=== PATIENT | female | born 1995 | race African-American/Black ===

== ENCOUNTER 2016-06-23 00:14 | Emergency (ER) | payer OTHER ==
[~2016-06-23] VITALS: Ht 160 cm; Wt 68.0 kg
[~2016-06-23 00:14] MED LIST: AMOXIL500 MG PO; IBUPROFEN800 M1 PO; PREDNISOLO15 MG/5 M4 PO; TYLENOL #31 TAB PO
[2016-06-23 00:32] VITALS: BP 117/78
--- NOTE | 2016-06-23 01:57 | ED INFLUENZA/URI COMPLAINT ---
History of Present Illness General Chief Complaint: Sore Throat, Dental Pain Stated Complaint: NECK LUMP Source: patient Exam Limitations: no limitations Vital Signs & Intake/Output Vital Signs & Intake/Output Vital Signs Date Time Temp Pulse Resp B/P Pulse O2 O2 Flow FiO2 Ox Delivery Rate 06/23 0307 97.3 06/23 0032 97.3 99 18 117/78 98 Room Air Allergies Coded Allergies: NO KNOWN ALLERGIES (03/22/16) Reconcile Medications Ibuprofen 600 MG TABLET 1 TAB PO TID PRN PAIN, BODY ACHES with food Triage Note: SWOLLEN GLAND LT SIDE OF NECK HURTS JULIA SWALLOW Triage Nurses Notes Reviewed? yes Onset: Gradual Duration: day(s): Severity: mild Modifying Factors: Improves With: rest. Worsens With: other (worse with swallowing). Associated Symptoms: "I feel lump in my neck." : No Patient currently breastfeeds: No HPI: 20-year-old woman in prior good health presents with 1 day history of sore throat and mild pain in her left submental region where she has felt a small mobile lump. She has no ear pain sinus pressure or dyspnea wheezing fever chest or abdominal pain. Past History Travel History Traveled to [place] past 21 day No Medical History Any Pertinent Medical History? 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 No Review of Systems Review of Systems Constitutional: Reports: no symptoms. EENTM: Reports: no symptoms. Respiratory: Reports: no symptoms. Cardiovascular: Reports: no symptoms. GI: Reports: no symptoms. Genitourinary: Reports: no symptoms. Musculoskeletal: Reports: no symptoms. Skin: Reports: no symptoms. Neurological/Psychological: Reports: no symptoms. Hematologic/Endocrine: Reports: no symptoms. Immunologic/Allergic: Reports: no symptoms. All Other Systems: Reviewed and Negative Physical Exam Physical Exam General Appearance: well developed/nourished, no apparent distress Head: atraumatic, normal appearance Eyes: Bilateral: normal appearance. Ears, Nose, Throat: pharyngeal erythema, TMs are normal Neck: 1 cm mobile smooth lymph node in the submental region on the left. No sign of lymphadenitis. Respiratory: normal breath sounds, chest non-tender, no respiratory distress, quiet respiration, lungs clear Cardiovascular: regular rate/rhythm Gastrointestinal: normal bowel sounds, soft, non-tender, no organomegaly Back: normal inspection Extremities: normal inspection Neurologic/Psych: no motor/sensory deficits, awake, alert, oriented x 3 Skin: intact, normal color, warm/dry Core Measures Severe Sepsis Present: No Septic Shock Present: No Progress Differential Diagnosis: viral syndrome versus strep throat versus other Plan of Care: Orders Procedure Date/time Status THROAT CULTURE W/QUICK STREP 06/23 0035 Active Initial ED EKG: none Departure Departure Disposition: HOME OR SELF CARE Condition: Stable Clinical Impression Primary Impression: Pharyngitis Referrals: PATIENT HAS NO PRIMARY CARE DR (PCP/Family) Departure Forms: Customer Survey General Discharge Information Prescriptions: Current Visit Scripts Ibuprofen 1 TAB PO TID PRN PAIN, BODY ACHES #30 TAB with food Comments Rapid strep negative. Patient hasn't otherwise benign exam. We'll give symptomatic care with one dose of Decadron and ibuprofen
[2016-06-23] MEDS ORDERED: IBUPROFEN600 M1 PO (03:01)
== END 2016-06-23 03:23 ==
LOC: ERH 00:14
DX: J02.9 Acute pharyngitis, unspecified (principal)
CPT/HCPCS: J1100

== ENCOUNTER 2016-11-11 05:26 | Emergency (ER) | payer OTHER ==
[~2016-11-11] VITALS: Ht 160 cm; Wt 72.6 kg
[~2016-11-11 05:26] MED LIST changes: +IBUPROFEN600 M1 PO
[2016-11-11 05:31] VITALS: BP 107/69
--- NOTE | 2016-11-11 06:00 | ED GENERAL ADULT ---
History of Present Illness General Chief Complaint: General Adult Stated Complaint: BIBA, LEG AND ABD PAIN Source: patient Exam Limitations: no limitations Vital Signs & Intake/Output Vital Signs & Intake/Output Vital Signs Date Time Temp Pulse Resp B/P B/P Pulse O2 O2 Flow FiO2 Mean Ox Delivery Rate 11/11 0532 99 Room Air 11/11 0531 94.7 105 18 107/69 100 Room Air Allergies Coded Allergies: NO KNOWN ALLERGIES (03/22/16) Triage Note: PT BIBA FROM HOME C/O LEG CRAMPS. PER PT "I TOOK 2 WATER PILLS AROUND 1999 LAST NIGHT BECAUSE SOMEONE TOLD ME IT WOULD MAKE ME LOSE WEIGHT, THEN I WOKE UP ABOUT 30 MINS AGO WITH LEG CRAMPS" PT DENIES ANY OTHER COMPLAINTS AT THIS TIME. VSS, PT A&0X3. AWAITING PROVIDER EVAL Triage Nurses Notes Reviewed? yes Onset: Abrupt Duration: hour(s):, intermittent, resolved prior to arrival Severity: severe : No Patient currently breastfeeds: No HPI: Patient presents for evaluation of abdominal and leg cramps after taking 2 "water pills" to lose weight at about 8:00 this evening. Patient obtained the pills from a friend but failed to ask what type of medication it was or what the dose was. Past History Travel History Traveled to [place] past 21 day No Medical History Any Pertinent Medical History? 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 No Review of Systems Review of Systems Constitutional: Reports: no symptoms. EENTM: Reports: no symptoms. Respiratory: Reports: no symptoms. Cardiovascular: Reports: no symptoms. GI: Reports: no symptoms. Genitourinary: Reports: no symptoms. Musculoskeletal: Reports: see HPI. Skin: Reports: no symptoms. Neurological/Psychological: Reports: no symptoms. Hematologic/Endocrine: Reports: no symptoms. Immunologic/Allergic: Reports: no symptoms. All Other Systems: Reviewed and Negative Physical Exam Physical Exam General Appearance: see below Comments: Gen.: Well-nourished, well-developed, no acute respiratory distress. Head: Normocephalic, atraumatic. Eyes: Normal inspection bilaterally Ears: Normal inspection bilaterally Nose: Normal inspection, nasal cannula in place Throat/mouth : Moist mucosa Neck: Supple, full range of motion, no goiter Heart: Regular rate and rhythm Lungs: Quiet respirations Back: Normal range of motion Extremities: Normal extremity examination with no apparent signs of muscle spasms or spasticity Neurologic: Cranial nerves grossly intact, speech is clear Skin: warm and dry Psychiatric: Calm, cooperative, no apparent delusions or hallucinations Core Measures ACS in differential dx? No CVA/TIA Diagnosis: No Severe Sepsis Present: No Septic Shock Present: No Progress Differential Diagnoses I considered the following diagnoses in my evaluation of the patient: Dehydration, electrolyte losses Plan of Care: Discontinue Lasix Initial ED EKG: none Comments: 11/11/2016 6:45:04 AM I attempted to reevaluate juan after she drank a combination of Pedialyte and juice. Apparently she left the emergency department without notifying the ED staff. I suspect patient induced muscle cramps as a result of her use of Lasix to try to lose weight. Departure Departure Disposition: HOME OR SELF CARE Condition: Stable Clinical Impression Primary Impression: Muscle cramps Referrals: PATIENT HAS NO PRIMARY CARE DR (PCP/Family) Departure Forms: Customer Survey General Discharge Information Critical Care Note Critical Care Note Critical Care Time: non-applicable
== END 2016-11-11 08:14 ==
LOC: ERH 05:26
DX: R25.2 Cramp and spasm (principal)